=== PATIENT | female | born 1960 | race Caucasian/White ===

== ENCOUNTER 2018-08-17 13:03 | Emergency (ER) | payer OTHER ==
[2018-08-17 13:17] VITALS: BP 126/79
--- NOTE | 2018-08-17 13:46 | UC ---
Laceration HPI - HPI Summary HPI Summary: 58-year-old female presents with laceration to the tip of her right little finger. States she accidentally cut it with a knife while cutting an avocado earlier this morning. Bleeding controlled prior to arrival with direct pressure. Last tetanus was 2 years ago. - History Of Current Complaint Chief Complaint: UCLaceration Stated Complaint: RIGHT LITTLE FINGER LACERATION Time Seen by Provider: 08/17/18 13:17 Hx Obtained From: Patient Pain Intensity: 0 - Allergies/Home Medications Allergies/Adverse Reactions: Allergies Allergy/AdvReac Type Severity Reaction Status Date / Time morphine Allergy Shakes Verified 08/17/18 13:17 Home Medications: Home Medications NK [No Home Medications Reported] 08/17/18 [History Confirmed 08/17/18] PMH/Surg Hx/FS Hx/Imm Hx Previously Healthy: Yes - Denies significant PMH - Surgical History Surgical History: Yes Surgery Procedure, Year, and Place: LUMPECTOMY BREAST CA - Family History Known Family History: Positive: Non-Contributory - Social History Occupation: Employed Full-time Lives: Alone Alcohol Use: Occasionally Substance Use Type: None Smoking Status (MU): Current Some Day Smoker Review of Systems All Other Systems Reviewed And Are Negative: Yes Constitutional: Positive: Negative Skin: Positive: Other - See HPI Respiratory: Positive: Negative Cardiovascular: Positive: Negative Gastrointestinal: Positive: Negative Genitourinary: Positive: Negative Musculoskeletal: Positive: Negative Neurological: Positive: Negative Is Patient Immunocompromised?: No Physical Exam Triage Information Reviewed: Yes Appearance: Well-Appearing, No Pain Distress, Well-Nourished Vital Signs: Initial Vital Signs Temp 97.6 F 08/17/18 13:14 Pulse 73 08/17/18 13:14 Resp 17 08/17/18 13:14 BP 126/79 08/17/18 13:14 Pulse Ox 100 08/17/18 13:14 Vital Signs Reviewed: Yes Respiratory: Positive: Lungs clear, Normal breath sounds, No respiratory distress Cardiovascular: Positive: RRR, No Murmur, Pulses Normal, Brisk Capillary Refill Abdomen Description: Positive: Nontender, No Organomegaly, Soft Bowel Sounds: Positive: Present Musculoskeletal: Positive: Strength Intact, ROM Intact Neurological: Positive: Alert Skin: Positive: Significant Lesion(s) - 1 cm linear superficial laceration to the tip of the right little finger with bleeding controlled Laceration Repair - Laceration Repair 1 Description: Linear Laceration Size After Repair: Length (cm) - 1 Modified For Repair: No Cleansing Completed Via Routine Prep: Yes Irrigation With Pressure Irrigation Device: Yes Closure Material: Skin Adhesive, SteriStrips Closure Method: Single Layer Laceration Course/Dx - Course/Dx Course Of Treatment: 58-year-old female presents with laceration to the tip of her right little finger. States she accidentally cut it with a knife while cutting an avocado earlier this morning. Bleeding controlled prior to arrival with direct pressure. Last tetanus was 2 years ago. Afebrile. Vital signs stable. Exam reveals an adult female in no acute distress with a 1 cm superficial laceration to tip of her right little finger with bleeding controlled. The wound was cleansed and you're kicked by the RN prior to laceration repair. Wound margins were brought into good alignment and closed using Steri-Strips and a skin adhesive. A sterile gauze dressing was then applied by the RN. Wound care, anticipatory guidance, and warning symptoms were reviewed with the patient. Verbalizes understanding and agrees with plan of care. - Differential Dx - Laceration/Wound Differental Diagnoses: Laceration - Diagnosis Provider Diagnosis: Laceration of right little finger Discharge - Sign-Out/Discharge Documenting (check all that apply): Patient Departure All imaging exams completed and their final reports reviewed: No Studies - Discharge Plan Condition: Stable Disposition: HOME Patient Education Materials: Laceration (ED), Skin Adhesive Care (ED), Steristrips (ED) Referrals: No Primary Care Phys,NOPCP [Primary Care Provider] - Additional Instructions: Your laceration was repaired using Steri-Strips and skin adhesive. The Steri-Strips will slowly peel off from the ends. You may trim these ends but do not pull them off as this may cause the wound to reopen. Do not get the skin adhesive wet for the next 24 hours. After 24 hours you may shower and wash your hands as normal. Do not apply any ointments to the wound as this will dissolve the glue. Watch for signs of infection including fever greater than 100.5 F, increased pain, redness the spreads, swelling of the finger, or pus draining from the wound. Seek immediate medical attention should ay of these occur. - Billing Disposition and Condition Condition: STABLE Disposition: Home - Attestation Statements Provider Attestation: Per institutional requirements, I have reviewed the chart, however, I was not consulted specifically or made aware of this patient by the midlevel provider. I did not personally evaluate, interact with , or disposition this patient.
== END 2018-08-17 13:51 | disposition home or self-care (01) ==
LOC: UCCORT 13:03
DX: S61.216A Laceration without foreign body of right little finger without damage to nail, initial encounter (principal); F17.200 Nicotine dependence, unspecified, uncomplicated; Z88.5 Allergy status to narcotic agent; W26.0XXA Contact with knife, initial encounter; Y93.89 Activity, other specified; Y92.9 Unspecified place or not applicable
CPT/HCPCS: 12001; 99202; G0463

== ENCOUNTER 2019-02-01 07:07 | Emergency (ER) | payer OTHER ==
[2019-02-01 07:31] VITALS: BP 128/74
--- NOTE | 2019-02-01 07:49 | UC ---
Respiratory Complaint HPI - HPI Summary HPI Summary: Patient visiting and staying in a house with cat owners She has asthma and forgot her rescue inhaler she had wheezing last PM Feels better now requests inhaler no allergic rhinitis or eye complaints - History of Current Complaint Chief Complaint: UCRespiratory Stated Complaint: ALLERGIES (HX ASTHMA) Time Seen by Provider: 02/01/19 07:42 Hx Obtained From: Patient Onset/Duration: Gradual Onset Severity Initially: Mild Severity Currently: None Pain Intensity: 0 Character: Cough: Nonproductive Aggravating Factors: Allergens Alleviating Factors: Spontaneous Resolution Associated Signs And Symptoms: Positive: Wheezing. Negative: Dyspnea, Fever, Chills, Pleuritic Chest Pain, Hemoptysis, Dizziness, Calf Pain, Calf Swelling, Edema, URI, Nasal Congestion, Hoarseness, Sinus Discomfort - Allergies/Home Medications Allergies/Adverse Reactions: Allergies Allergy/AdvReac Type Severity Reaction Status Date / Time morphine Allergy Shakes Verified 02/01/19 07:31 Home Medications: Home Medications Albuterol HFA INHALER* [Ventolin HFA Inhaler*] 2 puff INH DAILY PRN 02/01/19 [ History Confirmed 02/01/19] PMH/Surg Hx/FS Hx/Imm Hx Previously Healthy: Yes Respiratory History: Asthma, Pneumonia - Surgical History Surgical History: Yes Surgery Procedure, Year, and Place: LUMPECTOMY BREAST CA - Family History Known Family History: Positive: Respiratory Disease, Non-Contributory - Social History Alcohol Use: Occasionally Substance Use Type: None Smoking Status (MU): Current Some Day Smoker Review of Systems All Other Systems Reviewed And Are Negative: Yes Constitutional: Positive: Negative Skin: Positive: Negative Eyes: Positive: Negative ENT: Positive: Negative Respiratory: Positive: Other - wheezing/chest tightness last PM Cardiovascular: Positive: Negative Gastrointestinal: Positive: Negative Genitourinary: Positive: Negative Motor: Positive: Negative Musculoskeletal: Positive: Negative Neurological: Positive: Negative Psychological: Positive: Negative Physical Exam Triage Information Reviewed: Yes Appearance: Well-Appearing, No Pain Distress, Well-Nourished Vital Signs: Initial Vital Signs Temp 97.6 F 02/01/19 07:24 Pulse 75 02/01/19 07:24 Resp 18 02/01/19 07:24 BP 128/74 02/01/19 07:24 Pulse Ox 100 02/01/19 07:24 Vital Signs Reviewed: Yes Eyes: Positive: Conjunctiva Clear ENT: Positive: Hearing grossly normal. Negative: Nasal congestion, Nasal drainage, Trismus, Muffled voice, Hoarse voice Neck: Positive: Supple, Nontender, No Lymphadenopathy Respiratory: Positive: Lungs clear, Normal breath sounds, No respiratory distress, No accessory muscle use Cardiovascular: Positive: RRR, No Murmur Musculoskeletal: Positive: No Edema Neurological: Positive: Alert Psychological Exam: Normal Skin Exam: Normal Respiratory Course/Dx - Course Course Of Treatment: Declines prednisone - Differential Dx/Diagnosis Provider Diagnosis: Bronchospasm Discharge ED - Sign-Out/Discharge Documenting (check all that apply): Patient Departure All imaging exams completed and their final reports reviewed: No Studies - Discharge Plan Condition: Stable Disposition: HOME Patient Education Materials: Wheezing (ED) Referrals: No Primary Care Phys,NOPCP [Primary Care Provider] - Additional Instructions: use inhaler as directed please return for worsening symptoms - Billing Disposition and Condition Condition: STABLE Disposition: Home
[2019-02-01] MEDS ORDERED: Albuterol HFA INHALER* 8 gm MDI INH ONE (07:53)
== END 2019-02-01 08:06 | disposition home or self-care (01) ==
LOC: UCCORT 07:07
DX: J45.909 Unspecified asthma, uncomplicated (principal); F17.210 Nicotine dependence, cigarettes, uncomplicated; Z85.3 Personal history of malignant neoplasm of breast
CPT/HCPCS: 99212; A9270-GY; G0463